=== PATIENT | male | born 1935 | race Hispanic/Latino ===

== ENCOUNTER 2018-03-25 21:35 | Inpatient (IN) | payer MEDICARE, OTHER ==
[2018-03-25 21:35] VITALS: BMI 25.0
[2018-03-25 22:54] LABS: BASO # 0.1 K/uL (0.0-0.2); BASO % 1.1 % (0.0-2.0); EOS # 0.1 K/uL (0.0-0.7); EOS % 1.1 % (0.0-4.0); HEMOGLOBIN 9.1 g/dL (12.0-18.0); LYMPH # 2.1 K/uL (1.0-4.3); MEAN CELL VOLUME 72.8 fl (80.0-94.0); MEAN CORPUSCULAR HEMOGLOBIN 23.3 pg (27.0-31.0); MEAN PLATELET VOLUME 7.9 fl (7.2-11.7); MONO # 0.7 K/uL (0.0-0.8); MONO % 8.3 % (0.0-10.0); NEUT # 5.4 K/uL (1.8-7.0); NEUT % 64.5 % (50.0-75.0); RBC 3.93 Mil/uL (4.40-5.90); RED CELL DISTRIBUTION WIDTH 18.9 % (11.5-14.5); WHITE BLOOD COUNT 8.4 K/uL (4.8-10.8)
[2018-03-25 23:03] LABS: ALB/GLOB RATIO 1.3 (1.0-2.1); ALBUMIN 3.7 g/dL (3.5-5.0); CALCIUM 8.4 mg/dL (8.4-10.2)
[2018-03-25 23:14] LABS: TROPONIN I 0.012 ng/mL (0.00-0.120)
--- NOTE | 2018-03-25 23:24 | ED PDOC ---
HPI: General Adult Time Seen by Provider: 03/25/18 21:50 Chief Complaint (Nursing): Weakness/Neurological Deficit Chief Complaint (Provider): Weakness/Neurological Deficit History Per: Patient, Family (son) History/Exam Limitations: no limitations Onset/Duration Of Symptoms: Hrs (x 6) Current Symptoms Are (Timing): Still Present Additional Complaint(s): 83 year old male with history of COPD, GERD, HTN, CAD and cardiac stents presents to the ED with weakness since 17:30 today. He also complains of urinary frequency in the last 3 days. Patient has genitourinary surgery performed by Dr. chávez last month but otherwise has no other medical complaints. Denies shortness of breath (although stated in triage was sob), fever, vomiting and chest pain. PMD: none provided Past Medical History Reviewed: Historical Data, Nursing Documentation, Vital Signs Vital Signs: Last Vital Signs Temp 97.9 F 03/27/18 08:00 Pulse 69 03/27/18 09:00 Resp 21 03/27/18 09:00 BP 98/32 L 03/27/18 11:08 Pulse Ox 95 03/27/18 09:00 - Medical History PMH: Asthma, Atrial Fibrillation, Bronchitis, CAD, CHF, COPD, Dementia, Emphysema, HTN, Hypercholesterolemia Denies: HIV, Chronic Kidney Disease - Surgical History Surgical History: Coronary Stent (1-2 yrs ago), Pacemaker - Family History Family History: States: Unknown Family Hx - Social History Current smoker - smoking cessation education provided: No Alcohol: None Drugs: Denies - Home Medications Home Medications: Ambulatory Orders Medication Instructions Recorded Insulin Detemir [Levemir] 10 units SC HS vial 08/11/16 Aspirin [Aspirin Chewable] 81 mg PO DAILY #30 chew 03/27/18 Ciprofloxacin [Cipro] 500 mg PO Q12 #28 tab 03/27/18 Clopidogrel [Plavix] 75 mg PO DAILY #30 tab 03/27/18 Docusate [Colace] 100 mg PO DAILY #10 cap 03/27/18 Ferrous Sulfate [Feosol] 325 mg PO BID #60 tab 03/27/18 Furosemide [Lasix] 20 mg PO DAILY #30 tab 03/27/18 Isosorbide Mononitrate ER [Imdur 30 mg PO DAILY #30 tab 03/27/18 ER] Labetalol [Trandate] 25 mg PO DAILY #30 tab 03/27/18 Lidocaine 5% [Lidoderm] 1 ea TD DAILY #30 patch 03/27/18 Liothyronine Sodium 5 mcg PO DAILY #30 tablet 03/27/18 Losartan [Cozaar] 50 mg PO DAILY #30 tab 03/27/18 Pantoprazole [Protonix EC Tab] 40 mg PO DAILY #30 ect 03/27/18 Tamsulosin [Flomax] 0.8 mg PO DAILY #30 cap 03/27/18 Temazepam [Restoril] 30 mg PO HS PRN #30 cap 03/27/18 Tiotropium [Spiriva] 18 mcg INH DAILY #30 cap 03/27/18 Tramadol HCl [Ultram] 50 mg PO BID #14 tablet 03/27/18 - Allergies Allergies/Adverse Reactions: Allergies Allergy/AdvReac Type Severity Reaction Status Date / Time No Known Allergies Allergy Verified 03/25/18 21:40 Review of Systems ROS Statement: Except As Marked, All Systems Reviewed And Found Negative Constitutional: Positive for: Weakness. Negative for: Fever Cardiovascular: Negative for: Chest Pain Respiratory: Negative for: Shortness of Breath Physical Exam - Reviewed Nursing Documentation Reviewed: Yes Vital Signs Reviewed: Yes - Physical Exam Appears: Positive for: Non-toxic, No Acute Distress Head Exam: Positive for: ATRAUMATIC, NORMAL INSPECTION, NORMOCEPHALIC Skin: Positive for: Normal Color, Warm, Dry Eye Exam: Positive for: EOMI, Normal appearance, PERRL ENT: Positive for: Normal ENT Inspection Neck: Positive for: Normal, Painless ROM, Supple Cardiovascular/Chest: Positive for: Regular Rate, Rhythm Respiratory: Positive for: Normal Breath Sounds. Negative for: Wheezing, Respiratory Distress Gastrointestinal/Abdominal: Positive for: Normal Exam, Soft. Negative for: Tenderness Extremity: Positive for: Normal ROM. Negative for: Deformity Neurologic/Psych: Positive for: Alert, Oriented. Negative for: Motor/Sensory Deficits - Laboratory Results Result Diagrams: 03/27/18 04:30 03/27/18 04:30 - ECG O2 Sat by Pulse Oximetry: 98 (RA) Pulse Ox Interpretation: Normal Medical Decision Making Medical Decision Makin:17 Impression: generalized weakness plus ?sob Initial Plan: --BNP --CMP --Troponin I --CBC with diff --CXR --Urine cx --UA clled DR laguerre patients pcp she said to admit to medical service- dr landeros aware put in consult for cardiology as per dr landeros for dr jaime also put in urology consult for pts urologist Dr Chávez pt noted to have elevated probnp, cxr appears slight congested. i jd likelihood pt has chf exac. given lasix in the er. ---- Scribe Attestation: Documented by Susanne Donahue, acting as a scribe for Sophie Avendano MD Provider Scribe Attestation: All medical record entries made by the Scribe were at my direction and personally dictated by me. I have reviewed the chart and agree that the record accurately reflects my personal performance of the history, physical exam, medical decision making, and the department course for this patient. I have also personally directed, reviewed, and agree with the discharge instructions and disposition. Disposition - Clinical Impression Clinical Impression: Generalized muscle weakness, Acute exacerbation of CHF (congestive heart failure) - Patient ED Disposition Is Patient to be Admitted: Yes Counseled Patient/Family Regarding: Studies Performed - Disposition Disposition Time: 23:35 Condition: CRITICAL
[2018-03-25] MEDS ORDERED: Albuterol 0.083% Inhal Sol (2.5 mg/3 mL) UD INH ONE (23:30)
[2018-03-26] MEDS ORDERED: Albuterol-Ipratrop 3 mg / 0.5 (3 ml) UD ONE (00:38)
[2018-03-26] MEDS ORDERED: Albuterol 0.083% Inhal Sol (2.5 mg/3 mL) UD ONE (00:45)
[2018-03-26 02:22] LABS: URINE BILIRUBIN NEGATIVE (NEGATIVE); URINE BLOOD NEGATIVE (NEGATIVE); URINE CLARITY CLEAR (Clear); URINE COLOR COLORLESS (YELLOW); URINE GLUCOSE (UA) NEG (Normal); URINE HYALINE CAST 0-2 /hpf (0-2); URINE LEUKOCYTE ESTERASE NEG Leu/uL (Negative); URINE PROTEIN NEGATIVE (NEGATIVE); URINE UROBILINOGEN 0.2-1.0 mg/dL (0.2-1.0)
[2018-03-26] MEDS: Insulin Regular 100 units/ml SC SCH ×4 (06:47→22:30)
[2018-03-26 08:14] LABS: HEMOGLOBIN 10.2 g/dL (12.0-18.0); MEAN CELL VOLUME 71.4 fl (80.0-94.0); MEAN CORPUSCULAR HEMOGLOBIN 23.5 pg (27.0-31.0); RBC 4.34 Mil/uL (4.40-5.90); RED CELL DISTRIBUTION WIDTH 18.7 % (11.5-14.5); WHITE BLOOD COUNT 9.3 K/uL (4.8-10.8)
[2018-03-26 08:25] LABS: ALB/GLOB RATIO 1.3 (1.0-2.1); CALCIUM 8.8 mg/dL (8.4-10.2)
[2018-03-26 08:32] LABS: TROPONIN I 0.017 ng/mL (0.00-0.120)
[2018-03-26] MEDS: Tiotropium 18 mcg Cap For Inhalation INH SCH (09:55)
[2018-03-26] MEDS: Pantoprazole 40 mg EC Tab PO SCH (09:58)
--- NOTE | 2018-03-26 10:51 | RAD ---
Date of service: 03/25/2018 HISTORY: weakness COMPARISON: 08/12/2016 FINDINGS: LUNGS: No active pulmonary disease. PLEURA: .Minimal blunting of right costophrenic angle may reflect small pleural effusion or chronic pleural thickening CARDIOVASCULAR: Normal heart size. Permanent pacemaker. No congestive change. OSSEOUS STRUCTURES: No significant abnormalities. VISUALIZED UPPER ABDOMEN: Normal. OTHER FINDINGS: None. IMPRESSION: No infiltrate. Questionable minimal right pleural effusion.
--- NOTE | 2018-03-26 12:58 | CP.PCM.HP ---
<Moni Castillo - Last Filed: 03/26/18 13:07> History of Present Illness - History of Present Illness History of Present Illness: HPI: 83 YO Male with PMHx of COPD, GERD, HTN, CAD (with cardiac stents), IDDM, a fib, dementia presented to [facility] ED for weakness. Pt endorsed new onset weakness for the past few days, no associated symptoms. Pt seen and examined this AM. Breathing comfortably, not in any distress, VS in ICU stable. Endorsing pain in R leg "in his muscle." PMHx: COPD, GERD, HTN, CAD (cardiac stents), DM, a fib Surghx: coranary stent Allergies: NKDA Present on Admission - Present on Admission Any Indicators Present on Admission: No Review of Systems - Constitutional Constitutional: absent: Chills, Fever - Cardiovascular Cardiovascular: absent: Chest Pain, Dyspnea - Respiratory Respiratory: absent: Cough, Dyspnea - Gastrointestinal Gastrointestinal: absent: Abdominal Pain - Musculoskeletal Musculoskeletal: Muscle Cramps Past Patient History - Infectious Disease Hx of Infectious Diseases: None - Past Medical History & Family History Past Medical History?: Yes - Past Social History Smoking Status: Former Smoker - CARDIAC Hx Atrial Fibrillation: Yes Hx Congestive Heart Failure: Yes Hx Hypercholesterolemia: Yes Hx Hypertension: Yes Hx Pacemaker: Yes - PULMONARY Hx Asthma: Yes Hx Bronchitis: Yes Hx Chronic Obstructive Pulmonary Disease (COPD): Yes Hx Emphysema: Yes Hx Pneumonia: Yes - NEUROLOGICAL Hx Dementia: Yes - HEENT Hx HEENT Problems: No - RENAL Hx Chronic Kidney Disease: No - ENDOCRINE/METABOLIC Hx Endocrine Disorders: Yes - HEMATOLOGICAL/ONCOLOGICAL Hx Anemia: Yes Hx Blood Transfusions: Yes Hx Human Immunodeficiency Virus (HIV): No - INTEGUMENTARY Hx Dermatological Problems: No - MUSCULOSKELETAL/RHEUMATOLOGICAL Hx Falls: No - GASTROINTESTINAL Hx Gastrointestinal Disorders: Yes Hx Gastroesophageal Reflux: Yes Other/Comment: history of gastroesophagial CA - GENITOURINARY/GYNECOLOGICAL Hx Genitourinary Disorders: Yes - PSYCHIATRIC Hx Substance Use: No - SURGICAL HISTORY Hx Coronary Stent: Yes (1-2 yrs ago) - ANESTHESIA Hx Anesthesia: Yes Hx Anesthesia Reactions: No Meds Allergies/Adverse Reactions: Allergies Allergy/AdvReac Type Severity Reaction Status Date / Time No Known Allergies Allergy Verified 03/25/18 21:40 Physical Exam - Constitutional Appears: No Acute Distress - Head Exam Head Exam: ATRAUMATIC - ENT Exam ENT Exam: Mucous Membranes Moist - Respiratory Exam Respiratory Exam: Wheezes (expiratory wheezing b/l ), NORMAL BREATHING PATTERN. absent: Rales - Cardiovascular Exam Cardiovascular Exam: REGULAR RHYTHM, +S1, +S2 - GI/Abdominal Exam GI & Abdominal Exam: Normal Bowel Sounds, Soft. absent: Tenderness - Extremities Exam Extremities exam: Positive for: normal inspection. Negative for: calf tenderness, pedal edema - Neurological Exam Neurological exam: Alert Results - Vital Signs Recent Vital Signs: Last Vital Signs Temp 97.6 F 03/26/18 12:00 Pulse 61 03/26/18 12:23 Resp 24 03/26/18 12:00 BP 124/55 L 03/26/18 12:23 Pulse Ox 96 03/26/18 12:00 - Labs Result Diagrams: 03/26/18 07:40 03/26/18 07:40 Labs: Laboratory Results - last 24 hr 03/25/18 03/25/18 03/26/18 22:46 22:46 02:07 WBC 8.4 RBC 3.93 L Hgb 9.1 L Hct 28.6 L MCV 72.8 L D MCH 23.3 L MCHC 32.0 L RDW 18.9 H Plt Count 282 MPV 7.9 Neut % (Auto) 64.5 Lymph % (Auto) 25.0 [place] % (Auto) 8.3 Eos % (Auto) 1.1 Baso % (Auto) 1.1 Neut # (Auto) 5.4 Lymph # (Auto) 2.1 [place] # (Auto) 0.7 Eos # (Auto) 0.1 Baso # (Auto) 0.1 Sodium 142 Potassium 4.0 Chloride 107 Carbon Dioxide 24 Anion Gap 15 BUN 23 H Creatinine 1.5 Est GFR ( Amer) 54 Est GFR (Non-Af Amer) 45 POC Glucose (mg/dL) Random Glucose 86 Calcium 8.4 Total Bilirubin 0.3 AST 22 ALT 30 Alkaline Phosphatase 65 Troponin I 0.0120 NT-Pro-B Natriuret Pep 1770 H Total Protein 6.6 Albumin 3.7 Globulin 2.9 Albumin/Globulin Ratio 1.3 Urine Color Colorless Urine Clarity Clear Urine pH 6.0 Ur Specific [place] 1.006 Urine Protein Negative Urine Glucose (UA) Neg Urine Ketones Negative Urine Blood Negative Urine Nitrate Negative Urine Bilirubin Negative Urine Urobilinogen 0.2-1.0 Ur Leukocyte Esterase Neg Urine RBC (Auto) 1 Urine Microscopic WBC 4 Hyaline Casts 0-2 03/26/18 03/26/18 03/26/18 04:14 07:40 07:40 WBC 9.3 RBC 4.34 L Hgb 10.2 L Hct 31.0 L MCV 71.4 L MCH 23.5 L MCHC 33.0 RDW 18.7 H Plt Count 317 MPV Neut % (Auto) Lymph % (Auto) [place] % (Auto) Eos % (Auto) Baso % (Auto) Neut # (Auto) Lymph # (Auto) [place] # (Auto) Eos # (Auto) Baso # (Auto) Sodium 142 Potassium 3.9 Chloride 104 Carbon Dioxide 26 Anion Gap 16 BUN 21 H Creatinine 1.4 Est GFR ( Amer) 58 Est GFR (Non-Af Amer) 48 POC Glucose (mg/dL) 135 H Random Glucose 114 H Calcium 8.8 Total Bilirubin 0.4 AST 26 ALT 26 Alkaline Phosphatase 76 Troponin I 0.0170 NT-Pro-B Natriuret Pep Total Protein 7.1 Albumin 4.0 Globulin 3.1 Albumin/Globulin Ratio 1.3 Urine Color Urine Clarity Urine pH Ur Specific [place] Urine Protein Urine Glucose (UA) Urine Ketones Urine Blood Urine Nitrate Urine Bilirubin Urine Urobilinogen Ur Leukocyte Esterase Urine RBC (Auto) Urine Microscopic WBC Hyaline Casts 03/26/18 12:11 WBC RBC Hgb Hct MCV MCH MCHC RDW Plt Count MPV Neut % (Auto) Lymph % (Auto) [place] % (Auto) Eos % (Auto) Baso % (Auto) Neut # (Auto) Lymph # (Auto) [place] # (Auto) Eos # (Auto) Baso # (Auto) Sodium Potassium Chloride Carbon Dioxide Anion Gap BUN Creatinine Est GFR ( Amer) Est GFR (Non-Af Amer) POC Glucose (mg/dL) 115 H Random Glucose Calcium Total Bilirubin AST ALT Alkaline Phosphatase Troponin I NT-Pro-B Natriuret Pep Total Protein Albumin Globulin Albumin/Globulin Ratio Urine Color Urine Clarity Urine pH Ur Specific [place] Urine Protein Urine Glucose (UA) Urine Ketones Urine Blood Urine Nitrate Urine Bilirubin Urine Urobilinogen Ur Leukocyte Esterase Urine RBC (Auto) Urine Microscopic WBC Hyaline Casts Assessment & Plan (1) Acute exacerbation of CHF (congestive heart failure) Status: Acute (2) Atrial fibrillation Status: Chronic (3) CAD (coronary artery disease) Status: Chronic (4) Hypertension Status: Chronic - Assessment and Plan (Free Text) Assessment: Assessment/Plan: 83 YO Male with PMHx of COPD, GERD, HTN, CAD (with cardiac stents), IDDM, a fib , dementia is admitted for CHF exacerbation. -VS and blood work reviewed -sig for ProBNP 1770 -lasix 20mg BID -cardiology consulted -lidoderm patch on RLE -plan as ordered <Eriberto Varner - Last Filed: 04/03/18 06:53> Results - Vital Signs Recent Vital Signs: Last Vital Signs Temp 97.9 F 03/27/18 08:00 Pulse 69 03/27/18 09:00 Resp 21 03/27/18 09:00 BP 98/32 L 03/27/18 11:08 Pulse Ox 98 03/27/18 11:44 - Labs Result Diagrams: 03/27/18 04:30 03/27/18 04:30 Assessment & Plan - Assessment and Plan (Free Text) Plan: I was present during evaluation and discussed with Dr Castillo re plans of care and tx. Eriberto Varner M.D.
[2018-03-26] MEDS: Lidocaine 5% Patch TD SCH (13:31)
[2018-03-26] MEDS ORDERED: Insulin Detemir 100 Units/ml Inj SC SCH (22:00)
[2018-03-27 05:50] LABS: BASO # 0.1 K/uL (0.0-0.2); EOS # 0.2 K/uL (0.0-0.7); HEMOGLOBIN 10.8 g/dL (12.0-18.0); LYMPH # 2.6 K/uL (1.0-4.3); LYMPH % 35.8 % (20.0-40.0); MEAN CELL VOLUME 72.7 fl (80.0-94.0); MEAN CORPUSCULAR HEMOGLOBIN 23.1 pg (27.0-31.0); MEAN CORPUSCULAR HGB CONC 31.8 g/dL (33.0-37.0); MEAN PLATELET VOLUME 8.3 fl (7.2-11.7); MONO # 0.5 K/uL (0.0-0.8); MONO % 7.4 % (0.0-10.0); NEUT # 3.8 K/uL (1.8-7.0); NEUT % 52.8 % (50.0-75.0); RBC 4.65 Mil/uL (4.40-5.90); RED CELL DISTRIBUTION WIDTH 19.2 % (11.5-14.5); WHITE BLOOD COUNT 7.1 K/uL (4.8-10.8)
[2018-03-27 06:00] LABS: BLOOD UREA NITROGEN 24 mg/dl (9-20); CALCIUM 8.7 mg/dL (8.4-10.2); GFR NON-AFRICAN AMERICAN 58; HDL CHOLESTEROL 52 MG/DL (30-70)
[2018-03-27 06:11] LABS: LDL CHOLESTEROL 76 mg/dL (0-129)
[2018-03-27] MEDS: Insulin Regular 100 units/ml SC SCH (08:45)
[2018-03-27] MEDS: Lidocaine 5% Patch TD SCH (08:46)
[2018-03-27] MEDS: Tiotropium 18 mcg Cap For Inhalation INH SCH (08:47)
[2018-03-27] MEDS: Pantoprazole 40 mg EC Tab PO SCH (08:47)
[2018-03-27] MEDS ORDERED: Sodium Chloride 0.9% 1,000 ML IV SCH (09:30)
[2018-03-27 09:35] VITALS: TEMP 97.9
[2018-03-27] MEDS ORDERED: Chlorhexidine Gluconate 1 APPL/PKT TP ONE (10:03)
[2018-03-27 10:14] VITALS: PULSE 69; RESP 21
[2018-03-27 11:10] VITALS: BP 98/32
[2018-03-27 11:43] VITALS: O2SAT 98
--- NOTE | 2018-03-27 11:44 | CP.PCM.DIS ---
Addendum entered and electronically signed by Moni Castillo MD 03/27/18 13:54: d/c with Cipro x 14 days per urology. Original Note: <Moni Castillo - Last Filed: 03/27/18 13:50> Provider - Provider Date of Admission: 03/25/18 23:31 Attending physician: Eriberto Varner MD Time Spent in preparation of Discharge (in minutes): 20 Diagnosis - Discharge Diagnosis (1) Acute exacerbation of CHF (congestive heart failure) Status: Acute (2) Atrial fibrillation Status: Chronic (3) CAD (coronary artery disease) Status: Chronic (4) Hypertension Status: Chronic Hospital Course - Lab Results Lab Results: Micro Results 03/26/18 02:07 Urine Urine Culture - Final 10-50,000 CFU/ML. MULTIPLE SPECIES. PROBABLE CONTAMINATION. Most Recent Lab Values WBC 7.1 K/uL (4.8-10.8) 03/27/18 04:30 RBC 4.65 Mil/uL (4.40-5.90) 03/27/18 04:30 Hgb 10.8 g/dL (12.0-18.0) L 03/27/18 04:30 Hct 33.8 % (35.0-51.0) L 03/27/18 04:30 MCV 72.7 fl (80.0-94.0) L 03/27/18 04:30 MCH 23.1 pg (27.0-31.0) L 03/27/18 04:30 MCHC 31.8 g/dL (33.0-37.0) L 03/27/18 04:30 RDW 19.2 % (11.5-14.5) H 03/27/18 04:30 Plt Count 304 K/uL (130-400) 03/27/18 04:30 MPV 8.3 fl (7.2-11.7) 03/27/18 04:30 Neut % (Auto) 52.8 % (50.0-75.0) 03/27/18 04:30 Lymph % (Auto) 35.8 % (20.0-40.0) 03/27/18 04:30 [place] % (Auto) 7.4 % (0.0-10.0) 03/27/18 04:30 Eos % (Auto) 3.0 % (0.0-4.0) 03/27/18 04:30 Baso % (Auto) 1.0 % (0.0-2.0) 03/27/18 04:30 Neut # (Auto) 3.8 K/uL (1.8-7.0) 03/27/18 04:30 Lymph # (Auto) 2.6 K/uL (1.0-4.3) 03/27/18 04:30 [place] # (Auto) 0.5 K/uL (0.0-0.8) 03/27/18 04:30 Eos # (Auto) 0.2 K/uL (0.0-0.7) 03/27/18 04:30 Baso # (Auto) 0.1 K/uL (0.0-0.2) 03/27/18 04:30 Sodium 140 mmol/l (132-148) 03/27/18 04:30 Potassium 3.8 MMOL/L (3.6-5.0) 03/27/18 04:30 Chloride 100 mmol/L (98-107) 03/27/18 04:30 Carbon Dioxide 29 mmol/L (22-30) 03/27/18 04:30 Anion Gap 15 (10-20) 03/27/18 04:30 BUN 24 mg/dl (9-20) H 03/27/18 04:30 Creatinine 1.2 mg/dl (0.8-1.5) 03/27/18 04:30 Est GFR ( Amer) > 60 03/27/18 04:30 Est GFR (Non-Af Amer) 58 03/27/18 04:30 POC Glucose (mg/dL) 145 mg/dL (65-110) H 03/26/18 16:41 Random Glucose 90 mg/dL (75-110) 03/27/18 04:30 Calcium 8.7 mg/dL (8.4-10.2) 03/27/18 04:30 Total Bilirubin 0.4 mg/dl (0.2-1.3) 03/26/18 07:40 AST 26 U/L (17-59) 03/26/18 07:40 ALT 26 U/L (21-72) 03/26/18 07:40 Alkaline Phosphatase 76 U/L (38-126) 03/26/18 07:40 Troponin I 0.0170 ng/mL (0.00-0.120) 03/26/18 16:00 NT-Pro-B Natriuret Pep 1770 pg/ml (0-900) H 03/25/18 22:46 Total Protein 7.1 G/DL (6.3-8.2) 03/26/18 07:40 Albumin 4.0 g/dL (3.5-5.0) 03/26/18 07:40 Globulin 3.1 gm/dL (2.2-3.9) 03/26/18 07:40 Albumin/Globulin Ratio 1.3 (1.0-2.1) 03/26/18 07:40 Triglycerides 119 mg/DL (0-149) 03/27/18 04:30 Cholesterol 164 mg/dL (0-199) 03/27/18 04:30 LDL Cholesterol Direct 76 mg/dL (0-129) 03/27/18 04:30 HDL Cholesterol 52 MG/DL (30-70) 03/27/18 04:30 Urine Color Colorless (YELLOW) 03/26/18 02:07 Urine Clarity Clear (Clear) 03/26/18 02:07 Urine pH 6.0 (5.0-8.0) 03/26/18 02:07 Ur Specific [place] 1.006 (1.003-1.030) 03/26/18 02:07 Urine Protein Negative mg/dL (NEGATIVE) 03/26/18 02:07 Urine Glucose (UA) Neg mg/dL (Normal) 03/26/18 02:07 Urine Ketones Negative mg/dL (NEGATIVE) 03/26/18 02:07 Urine Blood Negative (NEGATIVE) 03/26/18 02:07 Urine Nitrate Negative (NEGATIVE) 03/26/18 02:07 Urine Bilirubin Negative (NEGATIVE) 03/26/18 02:07 Urine Urobilinogen 0.2-1.0 mg/dL (0.2-1.0) 03/26/18 02:07 Ur Leukocyte Esterase Neg [place]/uL (Negative) 03/26/18 02:07 Urine RBC (Auto) 1 /hpf (0-3) 03/26/18 02:07 Urine Microscopic WBC 4 /hpf (0-5) 03/26/18 02:07 Hyaline Casts 0-2 /hpf (0-2) 03/26/18 02:07 - Hospital Course Hospital Course: 83 YO Male with PMHx of COPD, GERD, HTN, CAD (with cardiac stents), IDDM, a fib , dementia is admitted for CHF exacerbation. Pt was treated with meds and symptoms improved. During admission, pt was found to have episodes of hypotension, BP meds were adjusted. Urology and cardiology was consulted; pt cleared for discharge by consulting physicians. Will d/c pt home with family, refill meds, add new meds and follow up with urology and Dr. Varner in 1 week. Discharge Exam - Head Exam Head Exam: ATRAUMATIC, NORMAL INSPECTION, NORMOCEPHALIC - Eye Exam Eye Exam: EOMI, Normal appearance - Respiratory Exam Respiratory Exam: Clear to PA & Lateral, NORMAL BREATHING PATTERN. absent: Wheezes - Cardiovascular Exam Cardiovascular Exam: REGULAR RHYTHM, +S1, +S2 - GI/Abdominal Exam GI & Abdominal Exam: Normal Bowel Sounds, Soft. absent: Tenderness - Extremities Exam Extremities exam: normal inspection - Neurological Exam Neurological exam: Alert Discharge Plan - Discharge Medications Prescriptions: Aspirin [Aspirin Chewable] 81 mg PO DAILY #30 chew Ciprofloxacin [Cipro] 500 mg PO Q12 #28 tab Clopidogrel [Plavix] 75 mg PO DAILY #30 tab Docusate [Colace] 100 mg PO DAILY #10 cap Ferrous Sulfate [Feosol] 325 mg PO BID #60 tab Furosemide [Lasix] 20 mg PO DAILY #30 tab Isosorbide Mononitrate ER [Imdur ER] 30 mg PO DAILY #30 tab Labetalol [Trandate] 25 mg PO DAILY #30 tab Lidocaine 5% [Lidoderm] 1 ea TD DAILY #30 patch Liothyronine Sodium 5 mcg PO DAILY #30 tablet Losartan [Cozaar] 50 mg PO DAILY #30 tab Pantoprazole [Protonix EC Tab] 40 mg PO DAILY #30 ect Tamsulosin [Flomax] 0.8 mg PO DAILY #30 cap Temazepam [Restoril] 30 mg PO HS PRN #30 cap PRN Reason: Insomnia Tiotropium [Spiriva] 18 mcg INH DAILY #30 cap Tramadol HCl [Ultram] 50 mg PO BID #14 tablet - Follow Up Plan Condition: STABLE Disposition: HOME/ ROUTINE Patient education suggested?: Yes Additional Instructions: Please follow up with PMD and Dr. Chávez in 1 week ER precautions I was present during evaluation and discussed with Dr Castillo re discharge plans. Eriberto Varner M.D. Referrals: Jd Chávez MD [Staff Provider] - Eriberto Varner MD [Staff Provider] - <Eriberto Varner - Last Filed: 04/03/18 06:54> Provider - Provider Date of Admission: 03/25/18 23:31 Attending physician: Eriberto Varner MD Hospital Course - Lab Results Lab Results: Micro Results 03/27/18 12:00 Naris MRSA Culture (Admit) - Final MRSA NOT DETECTED 03/26/18 03:00 [place] MRSA Culture (Admit) - Final MRSA NOT DETECTED 03/26/18 02:07 Urine Urine Culture - Final 10-50,000 CFU/ML. MULTIPLE SPECIES. PROBABLE CONTAMINATION. Most Recent Lab Values WBC 7.1 K/uL (4.8-10.8) 03/27/18 04:30 RBC 4.65 Mil/uL (4.40-5.90) 03/27/18 04:30 Hgb 10.8 g/dL (12.0-18.0) L 03/27/18 04:30 Hct 33.8 % (35.0-51.0) L 03/27/18 04:30 MCV 72.7 fl (80.0-94.0) L 03/27/18 04:30 MCH 23.1 pg (27.0-31.0) L 03/27/18 04:30 MCHC 31.8 g/dL (33.0-37.0) L 03/27/18 04:30 RDW 19.2 % (11.5-14.5) H 03/27/18 04:30 Plt Count 304 K/uL (130-400) 03/27/18 04:30 MPV 8.3 fl (7.2-11.7) 03/27/18 04:30 Neut % (Auto) 52.8 % (50.0-75.0) 03/27/18 04:30 Lymph % (Auto) 35.8 % (20.0-40.0) 03/27/18 04:30 [place] % (Auto) 7.4 % (0.0-10.0) 03/27/18 04:30 Eos % (Auto) 3.0 % (0.0-4.0) 03/27/18 04:30 Baso % (Auto) 1.0 % (0.0-2.0) 03/27/18 04:30 Neut # (Auto) 3.8 K/uL (1.8-7.0) 03/27/18 04:30 Lymph # (Auto) 2.6 K/uL (1.0-4.3) 03/27/18 04:30 [place] # (Auto) 0.5 K/uL (0.0-0.8) 03/27/18 04:30 Eos # (Auto) 0.2 K/uL (0.0-0.7) 03/27/18 04:30 Baso # (Auto) 0.1 K/uL (0.0-0.2) 03/27/18 04:30 Sodium 140 mmol/l (132-148) 03/27/18 04:30 Potassium 3.8 MMOL/L (3.6-5.0) 03/27/18 04:30 Chloride 100 mmol/L (98-107) 03/27/18 04:30 Carbon Dioxide 29 mmol/L (22-30) 03/27/18 04:30 Anion Gap 15 (10-20) 03/27/18 04:30 BUN 24 mg/dl (9-20) H 03/27/18 04:30 Creatinine 1.2 mg/dl (0.8-1.5) 03/27/18 04:30 Est GFR ( Amer) > 60 03/27/18 04:30 Est GFR (Non-Af Amer) 58 03/27/18 04:30 POC Glucose (mg/dL) 100 mg/dL (65-110) 03/27/18 05:54 Random Glucose 90 mg/dL (75-110) 03/27/18 04:30 Calcium 8.7 mg/dL (8.4-10.2) 03/27/18 04:30 Total Bilirubin 0.4 mg/dl (0.2-1.3) 03/26/18 07:40 AST 26 U/L (17-59) 03/26/18 07:40 ALT 26 U/L (21-72) 03/26/18 07:40 Alkaline Phosphatase 76 U/L (38-126) 03/26/18 07:40 Troponin I 0.0170 ng/mL (0.00-0.120) 03/26/18 16:00 NT-Pro-B Natriuret Pep 1770 pg/ml (0-900) H 03/25/18 22:46 Total Protein 7.1 G/DL (6.3-8.2) 03/26/18 07:40 Albumin 4.0 g/dL (3.5-5.0) 03/26/18 07:40 Globulin 3.1 gm/dL (2.2-3.9) 03/26/18 07:40 Albumin/Globulin Ratio 1.3 (1.0-2.1) 03/26/18 07:40 Triglycerides 119 mg/DL (0-149) 03/27/18 04:30 Cholesterol 164 mg/dL (0-199) 03/27/18 04:30 LDL Cholesterol Direct 76 mg/dL (0-129) 03/27/18 04:30 HDL Cholesterol 52 MG/DL (30-70) 03/27/18 04:30 Urine Color Colorless (YELLOW) 03/26/18 02:07 Urine Clarity Clear (Clear) 03/26/18 02:07 Urine pH 6.0 (5.0-8.0) 03/26/18 02:07 Ur Specific [place] 1.006 (1.003-1.030) 03/26/18 02:07 Urine Protein Negative mg/dL (NEGATIVE) 03/26/18 02:07 Urine Glucose (UA) Neg mg/dL (Normal) 03/26/18 02:07 Urine Ketones Negative mg/dL (NEGATIVE) 03/26/18 02:07 Urine Blood Negative (NEGATIVE) 03/26/18 02:07 Urine Nitrate Negative (NEGATIVE) 03/26/18 02:07 Urine Bilirubin Negative (NEGATIVE) 03/26/18 02:07 Urine Urobilinogen 0.2-1.0 mg/dL (0.2-1.0) 03/26/18 02:07 Ur Leukocyte Esterase Neg [place]/uL (Negative) 03/26/18 02:07 Urine RBC (Auto) 1 /hpf (0-3) 03/26/18 02:07 Urine Microscopic WBC 4 /hpf (0-5) 03/26/18 02:07 Hyaline Casts 0-2 /hpf (0-2) 03/26/18 02:07
--- NOTE | 2018-03-27 21:34 | CON ---
DATE: 03/27/2018 UROLOGIC CONSULT TIME OF CONSULTATION: Roughly 10:25 a.m. HISTORY OF PRESENT ILLNESS: The patient is an 83-year-old [place] male who most of the time lives in [place], [place], and followed by a urologist for bladder cancer, who was just recently admitted to [facility] for treatment of congestive heart failure. He does have a history of some increased urinary frequency recently and his prior urine culture done at [facility] on 02/20/2018 was positive for Pseudomonas aeruginosa and Klebsiella, both sensitive to Cipro and Levaquin. The patient also was treated for acute MIs in hospital in [place] and had cardiac arrhythmias. He also has a history of surgery for stomach cancer done 30 years ago and has done well regarding this pathology. He is also status post pacemaker insertion, which was done last year and also had placement of two coronary stents within the last two to five years. The patient was previously on Plavix and aspirin 81 mg dose daily, but stopped his Plavix after leaving [place] for [place]. The patient was previously admitted to [facility] via the emergency room for gross hematuria requiring Barrera catheterization, which was eventually replaced with a 22-[address] Barrera catheter, both of which had to be removed. The patient, however, was voiding bloody urine well at that time without any clots and only 20 mL residual urine on bladder scan. PAST MEDICAL HISTORY: The patient has a prior history of congestive heart failure, atrial fibrillation, stomach cancer, coronary artery disease, COPD, and pneumonia for which he was placed on Bactrim DS for treatment of his pneumonia. During his prior hospitalization, the patient did have a CT urogram done which showed a 2 cm lesion in the left kidney which does not enhance fully to be consistent with renal cell carcinoma and just enhances to the same degree as the renal cortex; and it also shows some blood clots in the bladder without any definite lesions visualized in the bladder. The patient had a cystoscopy done on 08/02/2016 which showed a small papillary type lesion on the left trigone, just proximal to the left ureteral orifice measuring about 1 cm, This was biopsied and the base was fulgurated with the coagulating current. 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 The patient also had hemorrhagic cystitis, mostly on the left side which was more likely responsible for his gross hematuria. Urine cytology on 02/20/2018 was negative for malignancy. Urine and FISH cytology also done on 02/20/2018 was negative for aneuploid cells. The patient's main complaint is urinary frequency with some urinary urgency. The patient's Flomax was increased from 0.4 mg daily to b.i.d. SOCIAL HISTORY: The patient was a former smoker. He has no history of any alcohol abuse. He does drink one to two cups of coffee per day and some red wine. No spicy food or chocolate intake. PHYSICAL EXAMINATION: GENERAL: Today, the patient is a well-developed, well-nourished [place] male. He is alert. He is oriented. HEENT: Grossly within normal limits. NECK: Supple. Thyroid not palpable. ABDOMEN: Soft, nondistended, nontender. No CVA tenderness. No suprapubic tenderness. GENITALIA: The patient is non-circumcised with normal glans and meatus without any rashes or lesions visualized. Testes are down bilaterally, nontender without masses. RECTAL EXAMINATION: Normal rectal tone without fluctuance or masses. Prostate is average size, is slightly enlarged. Prostate is smooth, symmetrical, nontender without nodules or indurations with a palpable median sulcus. EXTREMITIES: The patient has full range of motion of both upper and lower extremities. No leg edema or calf tenderness. VITAL SIGNS: Today, 03/27/2018, shows a temperature of 97.2; then again at 8 a.m., 97.9. Pulse rate was 60. Blood pressure was 98/32. O2 sat on nasal cannula is 92%. LABORATORY EVALUATION: On 03/27/2018, shows a CBC with a WBC count of 7.1, hemoglobin of 10.8, hematocrit of 33.8, and a platelet count of 304,000. His chem profile shows a sodium of 140, potassium 3.8. Chloride 100. CO2 of 29. BUN and creatinine 24 and 1.2 respectively with a GFR of 58 indicating chronic kidney disease stage III. Random glucose 90. Calcium 8.7. Triglyceride was 119. Total cholesterol 154. LDL 76 and HDL 52. Urinalysis: Color was colorless. Clarity was clear, pH 6. Specific gravity 1.006. Protein negative. Glucose negative. Ketones, blood, nitrite, bilirubin all negative. Urobilinogen 0.2 to 1. Leukocyte esterase negative, 1 rbc, 4 wbc's, 0 to 2 hyaline casts per high-power field. Urine culture showed 10,000 to 50,000 multiple species, probable contamination. ASSESSMENT AND PLAN: However, due to the patient's past positive urine culture for both Pseudomonas and Klebsiella, both sensitive to Cipro and because the patient is currently symptomatic, we will now start the patient on Cipro 500 mg b.i.d. for two weeks, and we will maintain the patient on his increased dose of Flomax 0.8 mg daily for treatment of benign prostatic hypertrophy. The patient can be seen in office for followup in two weeks. Jd Chávez MD MTDD
--- NOTE | 2018-04-18 13:19 | PQF ---
PROVIDER RESPONSE TEXT: CKD Stage III REVIEWER QUERY TEXT: Clarification of Clinical Diagnostic Findings Please clarify documentation or clinical relevance for the clinical / diagnostic findings or whether those are insignificant or unable to be further specified. The patient's Clinical Indicators include: 03/[address] Chávez page 2 under laboratory evaluation "GFR 58 indicative of chronic kidney disease 3." Query created by: Milly Fox on 04/11/2018 7:51 AM Electronically signed by: Eriberto Varner MD 04/18/2018 1:16 PM
== END 2018-03-27 11:51 | disposition home or self-care (01) | DRG 291 ==
LOC: H.ER 21:35 → H.ERHOLD 23:31 → H.ICU/CCU 03-26 02:42
PROVIDERS: ADMIT Family Medicine; ATTEND Family Medicine
DX: I13.0 Hypertensive heart and chronic kidney disease with heart failure and stage 1 through stage 4 chronic kidney disease, or unspecified chronic kidney disease (principal); I50.33 Acute on chronic diastolic (congestive) heart failure; J43.9 Emphysema, unspecified; E11.9 Type 2 diabetes mellitus without complications; Z79.4 Long term (current) use of insulin; I48.2 Chronic atrial fibrillation; F03.90 Unspecified dementia, unspecified severity, without behavioral disturbance, psychotic disturbance, mood disturbance, and anxiety; I25.10 Atherosclerotic heart disease of native coronary artery without angina pectoris; Z95.5 Presence of coronary angioplasty implant and graft; Z95.0 Presence of cardiac pacemaker; Z87.891 Personal history of nicotine dependence; K21.9 Gastro-esophageal reflux disease without esophagitis; E78.00 Pure hypercholesterolemia, unspecified; N18.3 Chronic kidney disease, stage 3 (moderate)

== ENCOUNTER 2018-05-24 15:36 | Emergency (ER) | payer MEDICARE, OTHER ==
[2018-05-24 15:36] VITALS: BMI 23.9
[2018-05-24 15:42] VITALS: RESP 18; TEMP 98
[2018-05-24] MEDS ORDERED: Albuterol-Ipratrop 3 mg / 0.5 (3 ml) UD INH STA (16:22)
--- NOTE | 2018-05-24 16:32 | ED PDOC ---
HPI: SOB/CHF/COPD Chief Complaint (Provider): Dyspnea History Per: Patient Onset/Duration Of Symptoms: Other (This morning ) Current Symptoms Are (Timing): Still Present Current Respiratory Medications: See Home Med List Associated Symptoms: Dizziness Recently: Hospitalized - Risk Factors PE Risk Factors: Pos: Recent Hospitalization, CHF <Sandhya Diaz - Last Filed: 05/24/18 17:41> <Jourdan Romo - Last Filed: 05/25/18 16:31> Time Seen by Provider: 05/24/18 15:51 Chief Complaint (Nursing): Shortness Of Breath Additional Complaint(s): Pt is an 83 yo M with hx of COPD, CHF, CAD, Bladder cancer here for dyspnea, tightness of the chest, dizziness and dry mouth that started this morning. Patient states he tried using a nebulizer at home without relief so he came to the ED. Patient was hospitalized 05/10 for pneumonia and was sent home on PO Zithromax for 5 days. Patient states he has a good appetite and drinks a lot of fluids. Patient has a chronic cough with white sputum. Denies sick contacts or recent travel. Patient denies fevers, chills, chest pain, nausea, vomiting, diarrhea, constipation. PMD: Dr. Eriberto Varner (Sandhya Diaz) Supervising Attending Note - Supervising Attending Note The Documented history was done by the: Physician Steam Conditioner Operator, Attending Physician The documented physical exam was done by the: Physician Steam Conditioner Operator, Attending Physician The documented procedures were done by the: Physician Steam Conditioner Operator, Attending Physician - Attestation: I have personally seen and examined this patient.: Yes I have fully participated in the care of the patient.: Yes I have reviewed all pertinent clinical information, including history, physical exam and plan: Yes <Jourdan Romo - Last Filed: 05/25/18 16:31> - AMA Patient Left Against Medical Advice: The patient declines admission to the hospital and wishes to leave the Emergency Department. This action is against my medical advice. This decision was made with informed refusal. The patient was told that admission to the hospital is necessary. Explanation of the reasons why were discussed. The risks of leaving were explained to the patient and include, but are not limited to, worsening of known or currently unknown conditions, permanent disability and from undiagnosed or untreated conditions. The patient has the capacity to make this informed decision and understands my explanation of the current medical problem and risks of leaving. The patient voluntarily accepts these risks and signed an AMA form documenting our conversation. The patient was given the opportunity to ask questions and reconsider. The patient was encouraged to return to the Emergency Department at any time for further care. Past Medical History - Medical History PMH: Anemia, Asthma, Atrial Fibrillation, Bronchitis, CAD, CHF, COPD, Dementia, Emphysema, HTN, Hypercholesterolemia, Pneumonia Denies: HIV, Chronic Kidney Disease - Surgical History Surgical History: Coronary Stent (1-2 yrs ago), Pacemaker - Family History Family History: States: Unknown Family Hx - Living Arrangements Living Arrangements: Alone - Social History Current smoker - smoking cessation education provided: No (Former smoker [id number] yrs) Alcohol: None Drugs: Denies - Immunization History Hx Influenza Vaccination: No Hx Pneumococcal Vaccination: No <Sandhya Diaz - Last Filed: 05/24/18 17:41> Reviewed: Historical Data, Nursing Documentation, Vital Signs <Jourdan Romo - Last Filed: 05/25/18 16:31> Vital Signs: Last Vital Signs Temp 98 F 05/24/18 15:40 Pulse 62 05/25/18 16:30 Resp 18 05/24/18 18:15 BP 122/69 05/24/18 18:15 Pulse Ox 96 05/24/18 18:15 - Home Medications Home Medications: Ambulatory Orders Medication Instructions Recorded Aspirin [Aspirin Chewable] 81 mg PO DAILY #30 chew 03/27/18 Clopidogrel [Plavix] 75 mg PO DAILY #30 tab 03/27/18 Ferrous Sulfate [Feosol] 325 mg PO BID #60 tab 03/27/18 Furosemide [Lasix] 20 mg PO DAILY #30 tab 03/27/18 Isosorbide Mononitrate ER [Imdur 30 mg PO DAILY #30 tab 03/27/18 ER] Labetalol [Trandate] 25 mg PO DAILY #30 tab 03/27/18 Liothyronine Sodium 5 mcg PO DAILY #30 tablet 03/27/18 Losartan [Cozaar] 50 mg PO DAILY #30 tab 03/27/18 Temazepam [Restoril] 30 mg PO HS PRN #30 cap 03/27/18 Tiotropium [Spiriva] 18 mcg INH DAILY #30 cap 03/27/18 Budesonide [Pulmicort Respules] 0.5 mg IH Q12 05/10/18 Pantoprazole [Protonix EC Tab] 40 mg PO DAILY 05/10/18 Relvar 1 puff IH DAILY 05/10/18 Tamsulosin [Flomax] 0.4 mg PO QPM 05/10/18 Tramadol HCl [Ultram] 50 mg PO BID PRN 05/10/18 traZODone [Desyrel] 100 mg PO HS 05/10/18 Fluconazole [Diflucan] 100 mg PO DAILY #5 tab 05/14/18 Albuterol HFA [Ventolin HFA 90 2 puff IH [id number] #1 inh 05/24/18 mcg/actuation (8 g)] Azithromycin [Zithromax Tri-Ethan] 500 mg PO DAILY #5 tablet 05/24/18 Prednisone 50 mg PO DAILY #5 tablet 05/24/18 - Allergies Allergies/Adverse Reactions: Allergies Allergy/AdvReac Type Severity Reaction Status Date / Time No Known Allergies Allergy Verified 05/24/18 15:40 Curb-65 Severity Score - CURB-65 Severity Score Confusion: No Respiratory Rate greater than/equal to 30: No Systolic BP <90 or Diastolic BP less than/equal 60mmHg: No Age >64: Yes Curb-65 Score: 1 Percentage 30-day mortality: 2.7% <Sandhya Diaz - Last Filed: 05/24/18 17:41> Wells Criteria for PE - Wells Criteria for Pulmonary Embolism Clinical Signs and Symptoms of DVT: No P.E is #1 Diagnosis, or Equally Likely: No Heart Rate >100: No Immobilization at least 3 days;Surgery previous 4 weeks: No Previous, objectively diagnosed PE or DVT: No Hemoptysis: No Malignancy w/treatment within 6 months, or palliative: Yes Total Score: 1 <Sandhya Diaz - Last Filed: 05/24/18 17:41> Review of Systems Respiratory: Positive for: Shortness of Breath, Wheezing Musculoskeletal: Positive for: Neck Pain Neurological: Positive for: Dizziness <Sandhya Diaz - Last Filed: 05/24/18 17:41> ROS Statement: Except As Marked, All Systems Reviewed And Found Negative <Jourdan Romo - Last Filed: 05/25/18 16:31> Physical Exam - Physical Exam Appears: Positive for: Uncomfortable Head Exam: Positive for: ATRAUMATIC, NORMAL INSPECTION, NORMOCEPHALIC Skin: Positive for: Normal Color Eye Exam: Positive for: Normal appearance, EOMI Cardiovascular/Chest: Positive for: Regular Rate, Rhythm Respiratory: Positive for: Accessory Muscle Use, Rhonchi, Wheezing (Inspirtory and expiratory L > R ) Gastrointestinal/Abdominal: Positive for: Normal Exam, Soft Neurologic/Psych: Positive for: Alert, Oriented <Sandhya Diaz - Last Filed: 05/24/18 17:41> - Reviewed Nursing Documentation Reviewed: Yes Vital Signs Reviewed: Yes - Physical Exam Appears: Positive for: No Acute Distress <Jourdan Romo - Last Filed: 05/25/18 16:31> - ECG O2 Sat by Pulse Oximetry: 95 <Sandhya Diaz - Last Filed: 05/24/18 17:41> - ECG ECG: Positive for: Interpreted By Me, Viewed By Me ECG Rhythm: Positive for: Atrioventricular Paced. Negative for: ST/T Changes Rate: 62 - Progress Re-evaluation Time: 18:02 Condition: Re-examined, Improved <Jourdan Romo - Last Filed: 05/25/18 16:31> - Progress ED Course And Treament: Pt is an 83 yo M presents with Dyspnea and Dizziness that started this morning. Ordered: -Methylprednisolone 125mg IVP -Prednisone 60mg PO -CXR -EKG -ABG -BNP -CBC -BMP -BNP -D-Dimer -Tropoinin I Received: -Duoneb 3ml inh, Prednisone 60mg PO, CXR -Patient refused other treatments signed out AMA due to having a flight to [place] tomorrow -Informed patient of risks of signing out against medical advice, pt aware and still wishes to go (Sandhya Diaz) Nebulizer Treatments/Peak Flow - Duonebs Number of Bronchodilator Doses given?: 1 - Steroid Treatment Steroid: Not Clinically Indicated - Clinical Response Clinical Response: Improved <Jourdan Romo - Last Filed: 05/25/18 16:31> Disposition <Sandhya Diaz - Last Filed: 05/24/18 17:41> - Patient ED Disposition Is Patient to be Admitted: No Doctor Will See Patient In The: Office Counseled Patient/Family Regarding: Studies Performed, Diagnosis, Need For Followup - Disposition Disposition: Against Medical Advice Disposition Time: 18:03 <Jourdan Romo - Last Filed: 05/25/18 16:31> - Clinical Impression Clinical Impression: COPD (chronic obstructive pulmonary disease), Left against medical advice - Disposition Referrals: Eriberto Varner MD [Staff Provider] - Condition: GOOD Additional Instructions: ZACHARY DC, thank you for letting us take care of you today. Your provider was Jourdan Romo MD and you were treated for DIZZINESS. The emergency medical care you received today was directed at your acute symptoms. If you were prescribed any medication, please fill it and take as directed. It may take several days for your symptoms to resolve. Return to the Emergency Department if your symptoms worsen, do not improve, or if you have any other problems. Please contact your doctor or call one of the physicians/clinics you have been referred to that are listed on the Patient Visit Information form that is included in your discharge packet. Bring any paperwork you were given at discharge with you along with any medications you are taking to your follow up visit. Our treatment cannot replace ongoing medical care by a primary care provider outside of the emergency department. Thank you for allowing the [facility] team to be part of your care today. If you had an X-Ray or CT scan: A Radiologist will review the ED reading if any change in treatment is needed we will contact you. If you had a blood, urine, or wound culture: It will take several days for the results, if any change in treatment is needed we will contact you. If you had an STI test: It will take 48 hours for the results. Please call after 1 week if you have not heard back. Prescriptions: Albuterol HFA [Ventolin HFA 90 mcg/actuation (8 g)] 2 puff IH [id number] #1 inh Azithromycin [Zithromax Tri-Ethan] 500 mg PO DAILY #5 tablet Prednisone 50 mg PO DAILY #5 tablet Instructions: Exacerbation of COPD, Leaving Against Medical Advice
[2018-05-24] MEDS ORDERED: Albuterol-Ipratrop 3 mg / 0.5 (3 ml) UD ONE (16:56)
--- NOTE | 2018-05-24 17:27 | RAD ---
Date of service: 05/24/2018 PROCEDURE: CHEST RADIOGRAPH, 1 VIEW HISTORY: dyspnea COMPARISON: 05/13/2018. FINDINGS: LUNGS: Clear. PLEURA: No pneumothorax or pleural fluid seen. CARDIOVASCULAR: Top normal size heart. Pulmonary vascular congestion. OSSEOUS STRUCTURES: No significant abnormalities. VISUALIZED UPPER ABDOMEN: Normal. OTHER FINDINGS: None. IMPRESSION: Acute pulmonary vascular congestion. No discrete/ focal infiltrates identified.
[2018-05-24 18:05] VITALS: PULSE 62
[2018-05-24 19:19] VITALS: BP 122/69; O2SAT 96
--- NOTE | 2018-05-25 17:35 | CARD ---
APPROVED REPORT Date of service: 05/24/2018 <Conclusion> Atrial-paced rhythm with prolonged AV conduction Abnormal ECG
== END 2018-05-24 18:15 | disposition left against medical advice (07) ==
LOC: H.ER 15:36
DX: J44.9 Chronic obstructive pulmonary disease, unspecified (principal); E78.00 Pure hypercholesterolemia, unspecified; F03.90 Unspecified dementia, unspecified severity, without behavioral disturbance, psychotic disturbance, mood disturbance, and anxiety; I11.0 Hypertensive heart disease with heart failure; I50.9 Heart failure, unspecified; Z95.0 Presence of cardiac pacemaker; Z95.5 Presence of coronary angioplasty implant and graft